=== PATIENT | male | born 1975 | race African-American/Black ===

== ENCOUNTER 2020-04-16 11:39 | Emergency (ER) | payer OTHER, SELFPAY ==
--- NOTE | 2020-04-16 11:54 | PC.NURSE ---
NATALIOD speaking with ortho at this time.
[2020-04-16 11:55] VITALS: BMI 25.6
--- NOTE | 2020-04-16 11:55 | XR_ITS ---
PROCEDURE: XR ELBOW LT MIN 3V CLINICAL INDICATION: laceration Pain COMPARISON: No exams were available for comparison FINDINGS: No fracture or dislocation. No lytic or blastic change. There is normal mineralization. The joint spaces are well-preserved. No significant degenerative/arthritic changes. No erosive changes evident. Other findings:None. IMPRESSION: No acute findings. Dictated by: Ham Mak MD 04/16/2020 12:35 Ham Mak MD in [place] 04/16/2020 12:35
[2020-04-16 11:56] VITALS: BP 189/118; PULSE 85; RESP 17; TEMP 37.1; O2SAT 99; BMI 25.6
--- NOTE | 2020-04-16 12:06 | PC.NURSE ---
Dr Teixeira at bedside
--- NOTE | 2020-04-16 12:43 | HMH.EDWNDL ---
ED Disposition Clinical Impression: Laceration Elbow laceration Qualifiers: Encounter type: initial encounter Laterality: left Qualified Code(s): S51.012A - Laceration without foreign body of left elbow, initial encounter Disposition: Home, Self-Care Condition on Discharge: Good Instructions: DI for Laceration Repair Additional Instructions: You were seen on an emergency basis. It is very important that you follow up with your primary care provider and/or specialist as we discussed within 2 days. All labs and imaging were obtained and interpreted here to rule out life threatening emergencies, but your final results should be reviewed by your primary doctor at your follow up appointment. Please return to the emergency department if any of your symptoms worsen, or if they do not improve as we discussed. Suture removal per orthopedics Prescriptions: cephALEXin [Keflex 500mg Cap] 500 mg PO Q6H 5 Days #20 cap Prescription Printed Referrals: PCP,No [Primary Care Provider] - - Critical Care Critical Care Time: No Attestation: On 04/16/20, the high probability of a clinically significant, sudden or life threatening deterioration of the following system(s) required my full and direct attention, intervention and personal management. The time I documented below is in addition to time spent performing reported procedures but includes the following listed in this critical care notation. Medical Decision Making - Medical Records Medical records reviewed: Yes: I reviewed the patient's medical records. - Sanjiv Inquiry Pt receiving controlled substance: No Vital Signs: 04/16/20 11:56 Temperature 98.7 F Temperature Source Oral Pulse Rate [Right Brachial] 85 Respiratory Rate 17 Blood Pressure [Right Arm] 189/118 H Blood Pressure Mean [Right Arm] 141 Blood Pressure Source [Right Arm] Automatic Cuff Blood Pressure Position [Right Arm] Sitting 02 Sat by Pulse Oximetry 99 Oxygen Delivery Method Room Air Orders (Tests/Meds): ED MEDICATIONS Discontinued Medications Generic Name Dose Route Start Last Admin Trade Name Freq PRN Reason Stop Dose Admin Cephalexin HCl 500 mg 04/16/20 12:44 04/16/20 12:47 Cephalexin 500mg Capsule PO 04/16/20 12:45 500 mg ONCE ONE Administration Protocol Medical Decision Narrative: 44-year-old male presenting with laceration to the left elbow. Full range of motion on arrival. X-ray of the left elbow was obtained and negative for fracture, dislocation or foreign body object. Orthopedics was consulted and evaluated the patient in the emergency department. They challenge the joints and subsequently repaired the laceration. I gave him 500 mg of Keflex here. I also gave a prescription for same. He declined pain medicine here. Follow-up with PCP. Wound/Laceration HPI - General Chief Complaint: Wound/Laceration Stated Complaint: lt arm lac AO 04/16/20 Time Seen by Provider: 04/16/20 12:43 Mode of Arrival: Ambulatory Limitations: No Limitations Description of Symptoms (Recalled from ER Triage Doc. by RN): Patient reports he was cutting down a tree and it came down and cut his left elbow. - History of Present Illness HPI narrative: This is a 44-year-old [id number] gentleman presenting 45 minutes after sustaining a laceration to his left lateral elbow on a tree. It was cut by the bark. He applied pressure to prevent bleeding prior to arrival. No numbness, tingling, weakness. Patient still has full range of motion and relates only mild localized pain. No prehospital medication was given. He drove himself here. No other injury sustained. - Related Data Home Medications Medication Instructions Recorded Confirmed No Known Home Medications 04/16/20 04/16/20 Previous Rx's Medication Instructions Recorded cephALEXin [Keflex 500mg Cap] 500 mg PO Q6H 5 Days #20 cap 04/16/20 Allergies Allergy/AdvReac Type Severity Reaction Statu
[2020-04-16 13:05] VITALS: BP 157/106; PULSE 58; O2SAT 99
[2020-04-16 13:15] VITALS: BP 182/88; PULSE 85; RESP 17; TEMP 37.1; O2SAT 99
--- NOTE | 2020-04-16 16:17 | HMH.ORTHOCON ---
*Admission Date: 04/16/20 *Reason for consult:: L elbow laceration *History of present illness: 44-year-old gentleman presenting to the ED today for evaluation of an injury to the left elbow. He was cutting [place] a large tree [place] his property when a large branch came down and cut his elbow. He sustained a large laceration over the lateral aspect of the elbow, with no exposed bone or tendon. The laceration is directly over the joint and there is some question of whether or not the joint capsule was violated. Orthopedics was consulted to rule out intra-articular injury and the need for possible joint washout. Injury occurred approximately 45 minutes prior to ER presentation. He applied pressure to the wound to prevent bleeding prior to arrival. No numbness, tingling or weakness distal to the laceration. Full range of motion of the joint is preserved. He denies any history of baseline medical issues and does not have a primary care provider. [facility] History I have reviewed the patient's past medical history: Yes (patient denies PMH) *Have you ever received a pneumonia vaccine?: No *Have you received a flu vaccine this season?: No - *Social History *Occupational Status:: employed *Travel in the last 8 weeks: None Family Hx:: Non-contributory Review of Systems - Review of Systems Review of systems:: pertinent systems reviewed and negative unless documented below - Constitutional Denies chills, Denies fever(s), Denies weakness - Eyes Denies blurry vision - ENT Denies headache(s) - *Cardiovascular Denies chest pain, Denies shortness of breath - *Respiratory Denies shortness of breath - *Gastrointestinal Denies abdominal pain - Integumentary/Breasts Reports other (traumatic laceration L elbow ) - *Neurologic Denies localized weakness, Denies headache(s), Denies numbness, Denies dizziness Meds Home Medications Medication Instructions Recorded Confirmed Type No Known Home Medications 04/16/20 04/16/20 History cephALEXin [Keflex 500mg Cap] 500 mg PO Q6H 5 Days #20 cap 04/16/20 Rx Allergies Allergy/AdvReac Type Severity Reaction Status Date / Time erythromycin base Allergy Intermediate S-DIFF. Unverified 08/08/17 14:30 [From ERYTHROCIN] BREATHING Exam Vital signs and Labs for Last 24 Hours: Temp Pulse Resp BP Pulse Ox 98.7 F 85 17 182/88 H 99 04/16/20 13:15 04/16/20 13:15 04/16/20 13:15 04/16/20 13:15 04/16/20 13:05 I & O for Last 24 hours: Intake & Output 04/14/20 04/15/20 04/16/20 04/17/20 11:59 11:59 11:59 11:59 Weight 205 lb - Constitutional no acute distress, average body habitus - *Routine HEENT Exam Head: Present: normocephalic Eye: Present: EOMI ENT: Present: mucous membranes moist - *Routine Neck Exam Present: trachea midline - *Routine Respiratory Exam Absent: respiratory distress, wheezes - *Routine Cardiovascular Exam Present: RRR - *Routine Abdominal Exam Present: soft. Absent: tenderness - *Routine Extremities Exam Comments: L elbow no gross deformity FROM L elbow 0-135 degrees, stable to varus/valgus stress no erythema or ecchymosis L elbow; laceration present laterally ~4cm laceration over lateral aspect of L elbow, appears superficial w/o exposed bone or tendon flexion and extension intact to L wrist/elbow and all digits 5/5 strength L elbow flexion/extension, wrist flexion/extension, forearm pronation/supination SILT distally LUE in m/r/u distributions AIN/PIN/ulnar nerves motor intact LUE palpable radial pulse L wrist, finger pink/warm with BCR - *Routine Skin Exam Present: warm, lesions (laceration lateral L elbow 4cm). Absent: ecchymosis - *Routine Neurological Exam Present: alert, oriented X3, moving all extremities, normal tone, vision grossly intact, hearing grossly intact, normal speech. Absent: sensory deficit, motor deficit, altered mental status - Routine Psychiatric Exam Present: normal affect
== END 2020-04-16 13:17 | disposition home or self-care (01) ==
PROVIDERS: Emergency Provider Physician Assistant
DX: S51.012A Laceration without foreign body of left elbow, initial encounter (principal); W45.8XXA Other foreign body or object entering through skin, initial encounter; Y92.017 Garden or yard in single-family (private) house as the place of occurrence of the external cause
CPT/HCPCS: 12002; 73080; 99283

== ENCOUNTER 2022-07-21 16:04 | Emergency (ER) | payer BC, SELFPAY ==
[2022-07-21 17:30] VITALS: BP 156/91; PULSE 101; RESP 18; TEMP 37; O2SAT 98; BMI 22.1
--- NOTE | 2022-07-21 17:53 | EXP.UTC ---
Discharge Plan Disposition Patient Disposition: Home, Self-Care Condition: Good Prescriptions Prescriptions: New doxycycline hyclate 100 mg tablet 100 mg PO BID Qty: 20 0RF guaifenesin [Mucinex] 600 mg tablet extended release 12hr 600 mg PO BID PRN (Reason: cough) Qty: 20 0RF prednisone [prednisone] 20 mg tablet 20 mg PO BID 5 Days Qty: 10 0RF No Action cephalexin 500 MG capsule 500 mg PO Q6H 5 Days Qty: 20 0RF Referrals Follow up/Referrals: Provider,Referral, MD [Primary Care Provider] - See instructions Activity Restrictions/Add. Instructions Additional Instructions/Restrictions: *Monitor Temp, Over the counter Motrin or Tylenol as directed/as needed Tylenol every 4 hours and Motrin every 6 hours (as long as your family doctor has told you that you can take it) for fever or pain. and straight to ER if unable to lower temp less than 101.0 after medication given *Warm salt water gargles may help to soothe the throat *Throat Lozenges? *Warm fluids like tea with honey may help to soothe the throat? *Sleep elevated *Humidifier/Vaporizer Follow up IMMEDIATELY for new or worsening symptoms or no Noticeable improvement over the next 48-72 hours. 911 for difficulty breathing or swallowing You were tested for today for Upper Respiratory Panel with COVID19 your test result should be back in the next 24-48 hours, you check your results on the [facility] [place] [facility] Clinical Impressions Clinical Impression: Sinusitis, Bronchitis Stand Alone Forms Stand Alone Forms: Work/School Release Instructions Patient Instructions: DI for Sinusitis, Sinusitis Discharge ED Provider: Cassie Ball [facility] [place] General Stated complaint: CONGESTION, FEVER Mode of Arrival: Ambulatory Source of Information: Patient Limitations: No Limitations Time Seen by Provider: 07/21/22 17:53 Description of Symptoms (Recalled from Triage Doc. by RN): PATIENT C/O RUNNY NOSE, FOOD/DRINK TASTING BAD, AND FEELS SOA WHEN LYING DOWN X 4 DAYS HEENT Symptoms (Recalled from RN notes): Yes Resp Symptoms (Recalled from RN notes): Yes Skin Symptoms (Recalled from RN notes): No MS Symptoms (Recalled from RN notes): No Functional Status (Recalled from RN notes): WNL History of Present Illness Provider Complaint: Patient state that he has been having sinus pain and pressure, runny nose, food tasting bad and having drainage in the back of his throat, and congestion States that he wasnt sure if he just had a sinus infection or if he may have COVID or flu as he has been exposed to both Related Data Previous Rx's Medication Instructions Recorded cephalexin 500 mg capsule 500 mg PO Q6H 5 days #20 caps 04/16/20 doxycycline hyclate 100 mg tablet 100 mg PO BID #20 tabs 07/21/22 guaifenesin 600 mg tablet, 600 mg PO BID PRN cough #20 tabs 07/21/22 extended release 12 hr (Mucinex) prednisone 20 mg tablet 20 mg PO BID 5 days #10 tabs 07/21/22 Allergies Allergy/AdvReac Type Severity Reaction Status Date / Time erythromycin base Allergy Intermediate S-DIFF. Verified 07/21/22 17:48 [From ERYTHROCIN] BREATHING Worker's Comp Is this a Worker's Comp case?: No [facility] Disclaimer: The information contained in this section may have been updated after the patient was seen, as this information can be updated by other users. Medical History (Updated 07/21/22 @ 18:06 by Cassie Ball APRN) Asthma Social History (Updated 07/21/22 @ 17:47 by Anabelle Najera RN) Smoking Status: Current every day smoker alcohol intake: never current occupational status: employed Travel in the last 8 weeks: None ROS Obtained: Yes All systems reviewed & no additional complaints except as documented and Yes Systems reviewed as appropriate & no additional complaints except as documented Constitutional Constitutional: Reports system reviewed and no additional complaints, except as documented, Reports as per HPI, Reports
[2022-07-21 17:58] LABS: Coronavirus 19, PCR Not Detected (NotDetected); Influenza A, PCR Not Detected (NotDetected); Influenza B, PCR Not Detected (NotDetected)
[2022-07-21 18:07] VITALS: BP 156/91; PULSE 101; RESP 18; TEMP 37; O2SAT 98
== END 2022-07-21 18:09 | disposition home or self-care (01) ==
PROVIDERS: Emergency Provider Nurse Practitioner
DX: J40 Bronchitis, not specified as acute or chronic (principal); J32.9 Chronic sinusitis, unspecified; Z88.1 Allergy status to other antibiotic agents
CPT/HCPCS: 99212; C9803; G0463; U0003; U0005